=== PATIENT | male | born 1980 | race Hispanic/Latino ===

== ENCOUNTER 2017-06-15 17:26 | Emergency (ER) | payer SELFPAY ==
[2017-06-15 18:35] LABS: RAPID GROUP A STREP NEGATIVE (NEGATIVE)
== END 2017-06-15 18:49 | disposition home or self-care (01) ==
LOC: EDH 17:26
DX: J06.9 Acute upper respiratory infection, unspecified (principal); Z87.891 Personal history of nicotine dependence
CPT/HCPCS: 71046; 87804; 87880

== ENCOUNTER 2018-02-15 18:39 | Emergency (ER) | payer OTHER ==
[2018-02-15] MEDS ORDERED: IPRATROPIUM/ALBUTEROL SULFATE 3 ML SOLUTION IH ONE (19:12)
== END 2018-02-15 20:05 | disposition home or self-care (01) ==
LOC: EDH 18:39
DX: J06.9 Acute upper respiratory infection, unspecified (principal); Z90.49 Acquired absence of other specified parts of digestive tract; Z87.891 Personal history of nicotine dependence
CPT/HCPCS: 87804; 94640

== ENCOUNTER 2018-04-01 10:18 | Emergency (ER) | payer SELFPAY ==
[2018-04-01 11:20] LABS: RAPID GROUP A STREP NEGATIVE (NEGATIVE)
== END 2018-04-01 11:31 | disposition home or self-care (01) ==
LOC: EDH 10:18
DX: J06.9 Acute upper respiratory infection, unspecified (principal); J30.9 Allergic rhinitis, unspecified; J01.90 Acute sinusitis, unspecified; Z87.891 Personal history of nicotine dependence
CPT/HCPCS: 87804; 87880

== ENCOUNTER 2019-03-25 12:50 | Emergency (ER) | payer BC, OTHER ==
[~2019-03-25 12:50] MED LIST: MULT-1296 PO
== END 2019-03-25 14:03 | disposition home or self-care (01) ==
LOC: EDH 12:50
DX: R05 Cough (principal); Z88.1 Allergy status to other antibiotic agents; Z90.49 Acquired absence of other specified parts of digestive tract; Z87.891 Personal history of nicotine dependence

== ENCOUNTER 2019-07-13 13:05 | Emergency (ER) | payer OTHER ==
[2019-07-13 14:00] LABS: BASOPHILS % (AUTO) 0.5 % (0.0-5.0); EOSINOPHILS % (AUTO) 2.5 % (0.0-8.0); HEMATOCRIT 46.1 % (42-54); LYMPHOCYTES % (AUTO) 22.6 % (21.0-51.0); MEAN CORPUSCULAR HGB CONC 33.2 g/dL (32.0-36.0); MEAN CORPUSCULAR VOLUME 90.4 fL (79-99); MONOCYTES % (AUTO) 6.4 % (3.0-13.0); NEUTROPHILS % (AUTO) 67.7 % (40.0-77.0); PLATELET COUNT (AUTO) 249 K/uL (130-400); RED CELL DISTRIBUTION WIDTH 12.2 % (11.0-15.5); WHITE BLOOD COUNT (AUTO) 9.6 K/uL (4.8-10.8)
[2019-07-13 14:19] LABS: CREATININE 1.3 mg/dL (0.5-1.5); POTASSIUM 3.9 mmol/L (3.5-5.1)
[2019-07-13] MEDS ORDERED: IOHEXOL-350 50ML VIAL IV ONE (14:43)
== END 2019-07-13 16:29 | disposition home or self-care (01) ==
LOC: EDH 13:05
DX: R68.84 Jaw pain (principal); R22.0 Localized swelling, mass and lump, head; Z90.49 Acquired absence of other specified parts of digestive tract; Z87.891 Personal history of nicotine dependence; Z88.6 Allergy status to analgesic agent; Z88.1 Allergy status to other antibiotic agents
CPT/HCPCS: 36415; 70491; 80048; 85025; 99285; Q9967

== ENCOUNTER 2020-04-20 16:05 | Emergency (ER) | payer SELFPAY | END 2020-04-20 20:03 | disposition home or self-care (01) | LOC: EDH 16:05 | DX: J12.89 Other viral pneumonia (principal); E11.9 Type 2 diabetes mellitus without complications; E78.00 Pure hypercholesterolemia, unspecified; Z90.49 Acquired absence of other specified parts of digestive tract; Z88.1 Allergy status to other antibiotic agents | CPT/HCPCS: 71045 ==

== ENCOUNTER 2023-02-12 00:36 | Emergency (ER) | payer OTHER ==
[~2023-02-12] VITALS: Ht 167.6 cm; Wt 81.6 kg
[2023-02-12 01:11] LABS: BASOPHILS # (AUTO) 0.01 K/uL (0.00-0.20); BASOPHILS % (AUTO) 0.1 % (0.0-5.0); EOSINOPHILS # (AUTO) 0.06 K/uL (0.00-0.70); EOSINOPHILS % (AUTO) 0.7 % (0.0-8.0); HEMATOCRIT 43.8 % (42-54); IMMATURE GRANULOCYTE ABSOLUTE 0.03 K/uL (0-1); LYMPHOCYTES # (AUTO) 0.4 K/uL (1.0-4.8); LYMPHOCYTES % (AUTO) 4.9 % (21.0-51.0); MEAN CORPUSCULAR HEMOGLOBIN 30.8 pg (27.0-33.0); MEAN CORPUSCULAR VOLUME 90.7 fL (79-99); MONOCYTES # (AUTO) 0.5 K/uL (0.1-1.0); MONOCYTES % (AUTO) 5.8 % (3.0-13.0); NEUTROPHILS # (AUTO) 7.4 K/uL (1.8-7.7); NEUTROPHILS % (AUTO) 88.1 % (40.0-77.0); PLATELET COUNT (AUTO) 198 K/uL (130-400); RED BLOOD CELL COUNT(AUTO) 4.83 MIL/uL (4.50-6.20); WHITE BLOOD COUNT (AUTO) 8.4 K/uL (4.8-10.8)
[2023-02-12 01:11] LABS: APPEARANCE,URINE CLEAR (CLEAR); BILIRUBIN,URINE NEGATIVE (NEGATIVE); COLOR,URINE YELLOW (YELLOW); GLUCOSE, URINE (UA) NEGATIVE (NEGATIVE); KETONES,URINE NEGATIVE (NEGATIVE); LEUKOCYTE ESTERASE ,URINE NEGATIVE Leu/uL (NEGATIVE); NITRATE,URINE NEGATIVE (NEGATIVE); OCCULT BLOOD,URINE NEGATIVE (NEGATIVE); PH,URINE 5.5 (5.0-8.0); PROTEIN,URINE 10 mg/dL (NEGATIVE); UROBILINOGEN,URINE 0.2 mg/dL (0.2-1.0)
[2023-02-12 01:13] LABS: ADD UA MICROSCOPIC YES
[2023-02-12 01:15] LABS: MUCUS,URINE RARE LPF (None Seen); RBC,URINE 0-1 /HPF (0-1); SQUAMOUS EPITHELIAL CELL,UR RARE /HPF (0-2); WBC,URINE 0-1 /HPF (0-1)
[2023-02-12 01:20] LABS: CREATININE 1.3 mg/dL (0.5-1.5); POTASSIUM 3.4 mmol/L (3.5-5.1)
[2023-02-12 01:24] LABS: ALBUMIN 3.7 g/dL (3.5-5.0); BILIRUBIN,TOTAL 0.8 mg/dL (0.2-1.0); INR 0.99 (0.85-1.15); PROTHROMBIN TIME 11.5 SEC (9.6-11.6); TOTAL PROTEIN, SERUM 7.2 g/dL (6.0-8.3)
[2023-02-12 01:26] LABS: PARTIAL THROMBOPLASTIN TIME 28.9 SEC (26.3-35.5)
[2023-02-12] MEDS ORDERED: HYDROMORPHONE 0.5 MG SYG (0.5MG/0.5ML) IVP ONE (01:30)
[2023-02-12 01:56] LABS: RAPID GROUP A STREP negative (NEGATIVE)
[2023-02-12 02:01] LABS: SARS-CoV-2, RNA, NAAT NEGATIVE SARS CoV-2 (NEGATIVE)
[2023-02-12 02:05] LABS: INFLUENZA TYPE A Negative For Type A (NEGATIVE); INFLUENZA TYPE B Negative For Type B (NEGATIVE)
[2023-02-12] MEDS ORDERED: MAG/ALUM/SIMETH 30 ML UDCUP PO ONE (02:30)
[2023-02-12] MEDS ORDERED: DICYCLOMINE HCL 10 MG/5 ML ML PO SCH (02:30)
[2023-02-12] MEDS ORDERED: LIDOCAINE HCL 2% VISCOUS 15 ML UDCUP PO ONE (02:30)
[2023-02-12 02:33] LABS: WBC MORPHOLOGY CONSISTENT W/DIFF
[2023-02-12] MEDS ORDERED: IOHEXOL 350 MG/ML 100ML INFUS..BTL IV ONE (03:03)
[2023-02-12] MEDS ORDERED: OMEP40CA21 PO (04:00)
[2023-02-12] MEDS ORDERED: MAG-55 PO (04:00)
[2023-02-12] MEDS ORDERED: IBUP-1493 PO (04:00)
[2023-02-12] MEDS ORDERED: ONDA-104 PO (04:00)
[2023-02-12 04:21] VITALS: BP 129/73; PULSE 86; RESP 18; O2SAT 98
== END 2023-02-12 04:23 | disposition home or self-care (01) ==
LOC: EDH 00:36
DX: R10.13 Epigastric pain (principal); Z20.822 Contact with and (suspected) exposure to COVID-19; Z79.899 Other long term (current) drug therapy; Z90.49 Acquired absence of other specified parts of digestive tract; Z98.890 Other specified postprocedural states
CPT/HCPCS: 99285; 74177; 96374; 87635; 80053; 83690; 85025; 85610; 85730; 87880; 87804 ×2; 81001; 36415; C9803; J1170; Q9967

== ENCOUNTER 2023-07-26 12:51 | Emergency (ER) | payer BC, OTHER ==
[~2023-07-26] VITALS: Ht 167.6 cm; Wt 113.4 kg
[~2023-07-26 12:51] MED LIST changes: +IBUP-1493 PO; +MAG-55 PO; +OMEP40CA21 PO; +ONDA-104 PO
[2023-07-26 13:32] LABS: BASOPHILS # (AUTO) 0.04 K/uL (0.00-0.20); BASOPHILS % (AUTO) 0.4 % (0.0-5.0); EOSINOPHILS # (AUTO) 0.15 K/uL (0.00-0.70); EOSINOPHILS % (AUTO) 1.6 % (0.0-8.0); HEMATOCRIT 43.2 % (42-54); IMMATURE GRANULOCYTE ABSOLUTE 0.05 K/uL (0-1); LYMPHOCYTES # (AUTO) 2.4 K/uL (1.0-4.8); LYMPHOCYTES % (AUTO) 25.7 % (21.0-51.0); MEAN CORPUSCULAR HEMOGLOBIN 31.2 pg (27.0-33.0); MEAN CORPUSCULAR HGB CONC 32.6 g/dL (32.0-36.0); MEAN CORPUSCULAR VOLUME 95.6 fL (79-99); MONOCYTES # (AUTO) 0.7 K/uL (0.1-1.0); MONOCYTES % (AUTO) 7.1 % (3.0-13.0); NEUTROPHILS % (AUTO) 64.7 % (40.0-77.0); PLATELET COUNT (AUTO) 249 K/uL (130-400); RED BLOOD CELL COUNT(AUTO) 4.52 MIL/uL (4.50-6.20); RED CELL DISTRIBUTION WIDTH 12.8 % (11.0-15.5); WHITE BLOOD COUNT (AUTO) 9.3 K/uL (4.8-10.8)
[2023-07-26 13:39] LABS: APPEARANCE,URINE CLEAR (CLEAR); BILIRUBIN,URINE NEGATIVE (NEGATIVE); COLOR,URINE YELLOW (YELLOW); GLUCOSE, URINE (UA) NEGATIVE (NEGATIVE); KETONES,URINE NEGATIVE (NEGATIVE); LEUKOCYTE ESTERASE ,URINE NEGATIVE Leu/uL (NEGATIVE); NITRATE,URINE NEGATIVE (NEGATIVE); OCCULT BLOOD,URINE NEGATIVE (NEGATIVE); PH,URINE 5.5 (5.0-8.0); PROTEIN,URINE NEGATIVE (NEGATIVE); UROBILINOGEN,URINE 0.2 mg/dL (0.2-1.0)
[2023-07-26 13:45] LABS: ADD UA MICROSCOPIC YES
[2023-07-26 13:46] LABS: CALCIUM OXALATE CRYSTALS,UR FEW /LPF (None Seen); MUCUS,URINE RARE LPF (None Seen)
[2023-07-26 13:48] LABS: CREATININE 1.4 mg/dL (0.5-1.3); POTASSIUM 3.6 mmol/L (3.5-5.1)
[2023-07-26] MEDS: KETOROLAC 15MG/ML VIAL (15MG/ML) IM ONE (13:50)
[2023-07-26 13:51] LABS: ALBUMIN 3.6 g/dL (3.5-5.0); BILIRUBIN,TOTAL 0.5 mg/dL (0.2-1.0); TOTAL PROTEIN, SERUM 7.2 g/dL (6.0-8.3)
[2023-07-26] MEDS: ONDANSETRON 4MG INJ IVP ONE (13:55)
[2023-07-26] MEDS: MORPHINE 4 MG SYG IVP ONE (13:56)
[2023-07-26] MEDS ORDERED: IOHEXOL 350 MG/ML 100ML INFUS..BTL IV ONE ×2 (14:31→14:48)
[2023-07-26 16:06] VITALS: BP 143/86; PULSE 73; RESP 16; O2SAT 97
[2023-07-26] MEDS ORDERED: AMOX-427 PO (17:36)
== END 2023-07-26 18:39 | disposition home or self-care (01) ==
LOC: EDH 12:51
DX: K52.9 Noninfective gastroenteritis and colitis, unspecified (principal); Z79.899 Other long term (current) drug therapy; Z90.49 Acquired absence of other specified parts of digestive tract; Z98.890 Other specified postprocedural states; Z88.8 Allergy status to other drugs, medicaments and biological substances
CPT/HCPCS: 99284; 74177; 96374; 96375; 80053; 85025; 81001; 36415; J2405; J2270; Q9967 ×2; J1885

== ENCOUNTER 2023-08-10 21:36 | Emergency (ER) | payer BC ==
[~2023-08-10] VITALS: Ht 167.6 cm; Wt 119.7 kg
[~2023-08-10 21:36] MED LIST changes: +AMOX-427 PO
[2023-08-10 23:35] VITALS: BP 132/74; PULSE 80; RESP 18; O2SAT 98
== END 2023-08-10 23:54 | disposition home or self-care (01) ==
LOC: EDH 21:36
DX: R10.84 Generalized abdominal pain (principal); Z90.49 Acquired absence of other specified parts of digestive tract
CPT/HCPCS: 74176

== ENCOUNTER 2023-11-17 18:37 | Observation (INO) | payer BC ==
[~2023-11-17] VITALS: Ht 167.6 cm; Wt 124.6 kg
[2023-11-17 19:02] LABS: BASOPHILS # (AUTO) 0.04 K/uL (0.00-0.20); BASOPHILS % (AUTO) 0.4 % (0.0-5.0); EOSINOPHILS # (AUTO) 0.22 K/uL (0.00-0.70); EOSINOPHILS % (AUTO) 2.3 % (0.0-8.0); HEMATOCRIT 45.4 % (42-54); IMMATURE GRANULOCYTE ABSOLUTE 0.03 K/uL (0-1); LYMPHOCYTES # (AUTO) 1.6 K/uL (1.0-4.8); LYMPHOCYTES % (AUTO) 17.4 % (21.0-51.0); MEAN CORPUSCULAR HEMOGLOBIN 30.6 pg (27.0-33.0); MEAN CORPUSCULAR HGB CONC 33.7 g/dL (32.0-36.0); MEAN CORPUSCULAR VOLUME 90.8 fL (79-99); MONOCYTES # (AUTO) 0.5 K/uL (0.1-1.0); MONOCYTES % (AUTO) 4.8 % (3.0-13.0); NEUTROPHILS % (AUTO) 74.8 % (40.0-77.0); PLATELET COUNT (AUTO) 234 K/uL (130-400); RED CELL DISTRIBUTION WIDTH 13.1 % (11.0-15.5); WHITE BLOOD COUNT (AUTO) 9.4 K/uL (4.8-10.8)
[2023-11-17 19:14] LABS: CREATININE 1.5 mg/dL (0.5-1.3); POTASSIUM 3.4 mmol/L (3.5-5.1)
[2023-11-17 19:19] LABS: ALBUMIN 3.8 g/dL (3.5-5.0); BILIRUBIN,TOTAL 0.5 mg/dL (0.2-1.0); TOTAL PROTEIN, SERUM 7.5 g/dL (6.0-8.3)
[2023-11-17 19:28] LABS: RAPID GROUP A STREP negative (NEGATIVE)
[2023-11-17 19:34] LABS: SARS-CoV-2, RNA, NAAT NEGATIVE SARS CoV-2 (NEGATIVE)
[2023-11-17 19:41] LABS: INFLUENZA TYPE A Negative For Type A (NEGATIVE); INFLUENZA TYPE B Negative For Type B (NEGATIVE)
[2023-11-17 20:00] LABS: APPEARANCE,URINE CLEAR (CLEAR); BILIRUBIN,URINE NEGATIVE (NEGATIVE); COLOR,URINE LIGHT-YELLOW (YELLOW); GLUCOSE, URINE (UA) NEGATIVE (NEGATIVE); KETONES,URINE NEGATIVE (NEGATIVE); LEUKOCYTE ESTERASE ,URINE NEGATIVE Leu/uL (NEGATIVE); NITRATE,URINE NEGATIVE (NEGATIVE); OCCULT BLOOD,URINE NEGATIVE (NEGATIVE); PH,URINE 5.5 (5.0-8.0); PROTEIN,URINE NEGATIVE (NEGATIVE); UROBILINOGEN,URINE 0.2 mg/dL (0.2-1.0)
[2023-11-17 20:13] LABS: ADD UA MICROSCOPIC NO
[2023-11-17] MEDS ORDERED: doCUSate SODIUM 100 MG CAP PO PRN (22:30)
[2023-11-17] MEDS ORDERED: ONDANSETRON 4MG INJ IVP PRN (22:30)
[2023-11-17] MEDS ORDERED: TEMAZEPAM 15 MG CAPSULE PO PRN (22:30)
[2023-11-17] MEDS ORDERED: acetaMINOPHEN 650 MG SUPPOSITORY RC PRN (22:30)
[2023-11-17] MEDS ORDERED: LACTULOSE 20 GM/30 ML UDCUP PO PRN (22:30)
[2023-11-17] MEDS ORDERED: hydrALAZine 20MG/ML VIAL IV PRN (22:30)
[2023-11-17] MEDS: LACTATED RINGERS 1000ML 1,000 ML IV SCH (22:34)
[2023-11-17] MEDS: LACTATED RINGERS 1000ML 1,000 ML IV ONE (22:34)
[2023-11-17] MEDS: ASPIRIN 81MG CHEW TAB PO ONE (22:35)
[2023-11-17] MEDS: atorVAStatin 40 MG TABLET PO SCH (22:46)
[2023-11-17 23:08] VITALS: BP 130/84; PULSE 81; RESP 17; TEMP 98.3
[2023-11-17 23:25] LABS: AMPHET/METH SCREEN,URINE NEGATIVE (NEGATIVE); BARBITURATE SCREEN, URINE NEGATIVE (NEGATIVE); BENZODIAZEPINES SCREEN,URINE NEGATIVE (NEGATIVE); CANNABINOID SCREEN,URINE NEGATIVE (NEGATIVE); COCAINE SCREEN,URINE NEGATIVE (NEGATIVE); OPIATE SCREEN,URINE NEGATIVE (NEGATIVE); PHENCYCLIDINE SCREEN,URINE NEGATIVE (NEGATIVE)
[2023-11-18] VITALS (8 sets, daily range): BP systolic 119–157; BP diastolic 68–88; PULSE 66–75; RESP 18–19; TEMP 97.6–98.5; O2SAT 97–98
[2023-11-18 05:16] LABS: BASOPHILS # (AUTO) 0.04 K/uL (0.00-0.20); BASOPHILS % (AUTO) 0.5 % (0.0-5.0); EOSINOPHILS # (AUTO) 0.31 K/uL (0.00-0.70); EOSINOPHILS % (AUTO) 3.8 % (0.0-8.0); HEMATOCRIT 42.3 % (42-54); IMMATURE GRANULOCYTE ABSOLUTE 0.06 K/uL (0-1); LYMPHOCYTES # (AUTO) 2.2 K/uL (1.0-4.8); LYMPHOCYTES % (AUTO) 26.7 % (21.0-51.0); MEAN CORPUSCULAR HEMOGLOBIN 30.7 pg (27.0-33.0); MEAN CORPUSCULAR HGB CONC 33.3 g/dL (32.0-36.0); MEAN CORPUSCULAR VOLUME 92.2 fL (79-99); MONOCYTES # (AUTO) 0.5 K/uL (0.1-1.0); MONOCYTES % (AUTO) 6.2 % (3.0-13.0); NEUTROPHILS # (AUTO) 5.1 K/uL (1.8-7.7); NEUTROPHILS % (AUTO) 62.1 % (40.0-77.0); PLATELET COUNT (AUTO) 214 K/uL (130-400); RED BLOOD CELL COUNT(AUTO) 4.59 MIL/uL (4.50-6.20); RED CELL DISTRIBUTION WIDTH 13.2 % (11.0-15.5); WHITE BLOOD COUNT (AUTO) 8.2 K/uL (4.8-10.8)
[2023-11-18 05:35] LABS: CREATININE 1.3 mg/dL (0.5-1.3); POTASSIUM 3.7 mmol/L (3.5-5.1); THYROID STIMULATING HORMONE 3.24 uIU/mL (0.36-3.74)
[2023-11-18] MEDS: INSULIN humuLIN R 100 UNIT/ML 3ML SQ SCH (06:21)
[2023-11-18 06:30] LABS: HEMOGLOBIN A1C 5.7 % (4.0-6.0)
[2023-11-18] MEDS: acetaMINOPHEN 325 MG TAB PO PRN (06:40)
[2023-11-18] MEDS: FAMOTIDINE 20MG TAB PO SCH (09:07)
[2023-11-18] MEDS: ASPIRIN 81MG CHEW TAB PO SCH (09:07)
[2023-11-18] MEDS: ENOXAPARIN SODIUM 40 MG/0.4 ML SYRINGE SQ SCH (09:08)
[2023-11-19 04:00] VITALS: BP 118/75; PULSE 70; RESP 20; TEMP 98.7
[2023-11-19 05:20] LABS: BASOPHILS # (AUTO) 0.05 K/uL (0.00-0.20); BASOPHILS % (AUTO) 0.7 % (0.0-5.0); EOSINOPHILS # (AUTO) 0.29 K/uL (0.00-0.70); EOSINOPHILS % (AUTO) 3.8 % (0.0-8.0); HEMATOCRIT 40.4 % (42-54); IMMATURE GRANULOCYTE ABSOLUTE 0.04 K/uL (0-1); LYMPHOCYTES % (AUTO) 26.5 % (21.0-51.0); MEAN CORPUSCULAR HEMOGLOBIN 30.3 pg (27.0-33.0); MEAN CORPUSCULAR HGB CONC 33.4 g/dL (32.0-36.0); MEAN CORPUSCULAR VOLUME 90.6 fL (79-99); MONOCYTES # (AUTO) 0.5 K/uL (0.1-1.0); MONOCYTES % (AUTO) 6.3 % (3.0-13.0); NEUTROPHILS # (AUTO) 4.8 K/uL (1.8-7.7); NEUTROPHILS % (AUTO) 62.2 % (40.0-77.0); PLATELET COUNT (AUTO) 194 K/uL (130-400); RED BLOOD CELL COUNT(AUTO) 4.46 MIL/uL (4.50-6.20); RED CELL DISTRIBUTION WIDTH 12.6 % (11.0-15.5); WHITE BLOOD COUNT (AUTO) 7.7 K/uL (4.8-10.8)
[2023-11-19 05:41] LABS: BILIRUBIN,TOTAL 0.6 mg/dL (0.2-1.0); CREATININE 1.4 mg/dL (0.5-1.3); MAGNESIUM 1.8 mg/dL (1.80-2.40); POTASSIUM 3.5 mmol/L (3.5-5.1); TOTAL PROTEIN, SERUM 6.1 g/dL (6.0-8.3)
[2023-11-19 08:00] VITALS: BP 119/85; PULSE 66; RESP 18; TEMP 97.5; O2SAT 97
[2023-11-19] MEDS: KCL 20 MEQ ERTAB PO ONE (10:40)
[2023-11-19 11:08] LABS: BASOPHILS # (AUTO) 0.05 K/uL (0.00-0.20); BASOPHILS % (AUTO) 0.6 % (0.0-5.0); EOSINOPHILS # (AUTO) 0.22 K/uL (0.00-0.70); EOSINOPHILS % (AUTO) 2.7 % (0.0-8.0); HEMATOCRIT 42.6 % (42-54); IMMATURE GRANULOCYTE ABSOLUTE 0.04 K/uL (0-1); LYMPHOCYTES # (AUTO) 1.7 K/uL (1.0-4.8); MEAN CORPUSCULAR HEMOGLOBIN 30.5 pg (27.0-33.0); MEAN CORPUSCULAR HGB CONC 33.1 g/dL (32.0-36.0); MONOCYTES # (AUTO) 0.5 K/uL (0.1-1.0); NEUTROPHILS # (AUTO) 5.6 K/uL (1.8-7.7); NEUTROPHILS % (AUTO) 69.2 % (40.0-77.0); PLATELET COUNT (AUTO) 210 K/uL (130-400); RED BLOOD CELL COUNT(AUTO) 4.63 MIL/uL (4.50-6.20); RED CELL DISTRIBUTION WIDTH 12.7 % (11.0-15.5); WHITE BLOOD COUNT (AUTO) 8.1 K/uL (4.8-10.8)
[2023-11-19 12:00] VITALS: BP 132/83; PULSE 82; RESP 19; TEMP 98.3
[2023-11-19 12:39] LABS: CREATININE 1.3 mg/dL (0.5-1.3); POTASSIUM 3.8 mmol/L (3.5-5.1)
[2023-11-19 12:45] LABS: ALBUMIN 3.3 g/dL (3.5-5.0); BILIRUBIN,TOTAL 0.6 mg/dL (0.2-1.0); TOTAL PROTEIN, SERUM 6.7 g/dL (6.0-8.3)
[2023-11-19] MEDS ORDERED: ASPI-1005 PO ×2 (13:28)
[2023-11-19] MEDS ORDERED: ATOR40TA69 PO ×2 (13:28)
[2023-11-19] MEDS ORDERED: FAMO20TA8 PO ×2 (13:28)
== END 2023-11-19 14:00 | disposition home or self-care (01) ==
LOC: EDH 18:37 → EDHIP 20:41 → 3CH 23:08
PROVIDERS: ADMIT Hospitalist; ATTEND Hospitalist
DX: R07.9 Chest pain, unspecified (principal); Z20.822 Contact with and (suspected) exposure to COVID-19; E87.6 Hypokalemia; I12.9 Hypertensive chronic kidney disease with stage 1 through stage 4 chronic kidney disease, or unspecified chronic kidney disease; E11.22 Type 2 diabetes mellitus with diabetic chronic kidney disease; N18.31 Chronic kidney disease, stage 3a; N17.9 Acute kidney failure, unspecified; E11.65 Type 2 diabetes mellitus with hyperglycemia; E78.5 Hyperlipidemia, unspecified; E86.0 Dehydration; R22.1 Localized swelling, mass and lump, neck; E66.01 Morbid (severe) obesity due to excess calories; Z68.38 Body mass index [BMI] 38.0-38.9, adult; Z88.5 Allergy status to narcotic agent; Z90.49 Acquired absence of other specified parts of digestive tract; Z79.899 Other long term (current) drug therapy
CPT/HCPCS: 99285; 82550; 84484 ×2; 80053 ×3; 83880; 80305; 85025 ×4; 85378; 87880; 87804 ×2; 81003; 36415 ×3; 87635; 71045; 93005; 96372 ×2; 96360; 96361; 83036; 84443; 82465; 83735 ×2; 84100; 84478; 80048; 82948 ×7; 70360; 70490; 93306; 93356; 93880; G0378 ×39; J7120; J1650 ×2

== ENCOUNTER 2023-11-20 23:04 | Emergency (ER) | payer BC ==
[~2023-11-20] VITALS: Ht 167.6 cm; Wt 122.5 kg
[~2023-11-20 23:04] MED LIST changes: +ASPI-1005 PO; +ATOR40TA69 PO; +FAMO20TA8 PO
[2023-11-21 00:52] LABS: APPEARANCE,URINE CLEAR (CLEAR); BILIRUBIN,URINE NEGATIVE (NEGATIVE); COLOR,URINE LIGHT-YELLOW (YELLOW); GLUCOSE, URINE (UA) NEGATIVE (NEGATIVE); KETONES,URINE NEGATIVE (NEGATIVE); LEUKOCYTE ESTERASE ,URINE NEGATIVE Leu/uL (NEGATIVE); NITRATE,URINE NEGATIVE (NEGATIVE); OCCULT BLOOD,URINE NEGATIVE (NEGATIVE); PH,URINE 5.5 (5.0-8.0); PROTEIN,URINE NEGATIVE (NEGATIVE); UROBILINOGEN,URINE 0.2 mg/dL (0.2-1.0)
[2023-11-21 01:04] LABS: ADD UA MICROSCOPIC NO
[2023-11-21] MEDS: ketOROlac 30MG VIAL (30MG/ML) IM ONE (02:14)
[2023-11-21] MEDS ORDERED: BACL10TA PO (02:15)
[2023-11-21] MEDS ORDERED: KETO10TA2 PO (02:15)
[2023-11-21 02:17] VITALS: BP 142/85; PULSE 82; RESP 16; TEMP 97.8; O2SAT 98
== END 2023-11-21 02:30 | disposition home or self-care (01) ==
LOC: EDH 23:04
DX: M62.830 Muscle spasm of back (principal); E11.9 Type 2 diabetes mellitus without complications; Z79.1 Long term (current) use of non-steroidal anti-inflammatories (NSAID); Z79.82 Long term (current) use of aspirin; Z79.899 Other long term (current) drug therapy; Z88.1 Allergy status to other antibiotic agents; Z90.49 Acquired absence of other specified parts of digestive tract; W01.0XXA Fall on same level from slipping, tripping and stumbling without subsequent striking against object, initial encounter; Y93.89 Activity, other specified; Y92.89 Other specified places as the place of occurrence of the external cause; Y99.8 Other external cause status
CPT/HCPCS: 99284; 81003; 72110; 96372; J1885

== ENCOUNTER 2024-06-27 21:11 | Emergency (ER) | payer BC ==
[~2024-06-27] VITALS: Ht 167.6 cm; Wt 129.3 kg
[~2024-06-27 21:11] MED LIST changes: -AMOX-427 PO; +BACL10TA PO; +KETO10TA2 PO
[2024-06-27 22:13] LABS: BASOPHILS # (AUTO) 0.05 K/uL (0.00-0.20); BASOPHILS % (AUTO) 0.5 % (0.0-5.0); EOSINOPHILS # (AUTO) 0.33 K/uL (0.00-0.70); EOSINOPHILS % (AUTO) 3.6 % (0.0-8.0); HEMATOCRIT 41.7 % (42-54); IMMATURE GRANULOCYTE ABSOLUTE 0.05 K/uL (0-1); LYMPHOCYTES # (AUTO) 2.1 K/uL (1.0-4.8); LYMPHOCYTES % (AUTO) 23.3 % (21.0-51.0); MEAN CORPUSCULAR HEMOGLOBIN 30.7 pg (27.0-33.0); MEAN CORPUSCULAR HGB CONC 34.1 g/dL (32.0-36.0); MEAN CORPUSCULAR VOLUME 90.3 fL (79-99); MONOCYTES # (AUTO) 0.6 K/uL (0.1-1.0); MONOCYTES % (AUTO) 6.9 % (3.0-13.0); NEUTROPHILS % (AUTO) 65.2 % (40.0-77.0); PLATELET COUNT (AUTO) 235 K/uL (130-400); RED BLOOD CELL COUNT(AUTO) 4.62 MIL/uL (4.50-6.20); RED CELL DISTRIBUTION WIDTH 12.9 % (11.0-15.5); WHITE BLOOD COUNT (AUTO) 9.2 K/uL (4.8-10.8)
[2024-06-27] MEDS: ASPIRIN 325MG TAB PO ONE (22:17)
[2024-06-27] MEDS: PANTOPrazole 40 MG/VIAL IVP ONE (22:17)
[2024-06-27 22:26] LABS: CREATININE 1.2 mg/dL (0.5-1.3); POTASSIUM 3.6 mmol/L (3.5-5.1)
[2024-06-27 22:53] LABS: B-TYPE NATRIURETIC PEPTIDE 6 pg/mL (0-100)
--- NOTE | 2024-06-27 23:21 | ERN ---
ED Note History of Present Illness Stated Complaint: NECK PAIN, ARM NUMBNESS Chief Complaint: Neck Pain Time Seen by MD: 21:29 Time Seen by Midlevel: 21:29 Dictation: Patient is a 44-year-old male with a history of appendectomy, cholecystectomy who presents to the emergency department with complaints of left side neck pain that radiates to the chest and left arm onset two days ago. Patient denies any trauma. Patient reports a sensation of swelling to the neck. Denies any fevers. Patient does report a the pain is worse with movement. Patient had similar episodes in November of last year. Allergies: Coded Allergies: ceftriaxone (Unverified Allergy, Severe, ANAPHYLAXIS, 09/17/18) No Known Allergies (Verified Allergy, Unknown, 09/17/18) metronidazole (Unverified Allergy, Unknown, 09/17/18) Home Meds Active Scripts Baclofen (Baclofen) 10 Mg Tablet, 10 MG PO BID for 7 Days, #1 TAB Prov:KEO SHAW MD 11/21/23 Ketorolac Tromethamine (Ketorolac Tromethamine) 10 Mg Tablet, 10 MG PO BID for 7 Days, #14 TAB Prov:KEO SHAW MD 11/21/23 Famotidine (Famotidine) 20 Mg Tablet, 20 MG PO BID, #60 TAB Prov:ANNE DELVALLE PRINCIPAL BIOSTATISTICIAN 11/19/23 Atorvastatin Calcium (LIPITOR) 40 Mg Tablet, 40 MG PO HS, #60 TAB Prov:ANNE DELVALLE PRINCIPAL BIOSTATISTICIAN 11/19/23 Aspirin (ASPIRIN 81MG CHEW TAB) 81 Mg Tab.chew, 81 MG PO DAILY, #60 TAB.CHEW Prov:ANNE DELVALLE PRINCIPAL BIOSTATISTICIAN 11/19/23 Mag Hydrox/Al Hydrox/Simeth (Maalox Maximum Strength Susp) 400 Mg-400 Mg-40 Mg/5 Ml Oral.susp, 20 ML PO QID, #250 ML Prov:BONNIE DUCKWORTH MD 02/12/23 Ondansetron HCl (Ondansetron HCl) 4 Mg Tablet, 4 MG PO TIDP PRN for VOMITING, #20 TAB Prov:BONNIE DUCKWORTH MD 02/12/23 Omeprazole (Omeprazole) 40 Mg Capsule.dr, 40 MG PO DAILY, #30 CAP Prov:BONNIE DUCKWORTH MD 02/12/23 Ibuprofen (Motrin/Advil) 800 Mg Tab, 800 MG PO TID, #30 TAB Prov:BONNIE DUCKWORTH MD 02/12/23 Reported Medications Multivitamin/Iron/Folic Acid (Centrum Adults Tablet) 1 Each Tablet, 1 EACH PO DAILY, TAB 09/17/18 Past Medical History Past Medical History: No Pertinent History Additional Past Medical Hx: DIERTICULITIS history of pancreatitis Surgical History: Appendectomy, Cholecystectomy Surgical History Other: Cholecystectomy Family History: HTN Social History: ETOH, Negative RN Note Reviewed/Agreed w/PFSH: Yes Review of System Dictation Constitutional: Negative for fever,chills, and weight loss Eyes: Negative for injury, pain,redness, and discharge ENT: Negative for injury,pain or swelling positive for left-sided neck pain Cardiovascular: Negative for palpitations, and edema positive for chest pain Respiratory: Negative for shortness of breath, cough, and wheezing, Abdomen/GI: Negative for abdominal pain, nausea, vomiting, diarrhea, and constipation Back: Negative for injury and pain : Negative for injury, bleeding and discharge MS/Extremity: Negative for injury and deformity Skin: Negative for rash, and discoloration Neuro: Negative for headache, weakness, numbness, tingling, and seizure Psych: Negative for suicide ideation, homicidal ideation, and hallucinations Initial Vital Sign VS Vital Signs Date Time Temp Pulse Resp B/P (MAP) Pulse Ox O2 Delivery O2 Flow Rate FiO2 06/27/24 21:22 97.5 71 24 151/91 97 Room Air 06/27/24 21:41 0 21 Physical Exam Dictation Vital Signs reviewed General Appearance: Alert, oriented x 3, no acute distress, well developed, nourished. Head and Face: non-traumatic. Eyes: PERRL, pink conjunctivas, eyelid no trauma, anterior chamber with arcus senilis. Ears: Pinnas intact and no signs of trauma or erythema ear canals clear and no discharge TM no erythema Nose: No discharge, no bleeding. Oropharynx: Mouth normal, tongue pink. pharynx clear,no erythema, tonsils no exudates, no abscesses noted, mucous membrane moist Neck: Supple, non-tender, no thyromegaly, no masses, no JVD, no bruits Breast:Deferred Chest:No tenderness, no crepitus, no paradoxical movement, no retractions Lungs:Clear, well-ventilated, symmetric, no rales, no wheezing, no rhonchi, no stridor, good breath sounds bilaterally Heart: Regular rate, regular rhythm, no murmur, no gallops Vascular: no peripheral edema, Abdomen: Soft, positive bowel sounds, nondistended, no guarding, nontender, no rebound, no masses no hepatomegaly, no splenomegaly, no Vargas's sign, no hernias. Rectal: Deferred Genital: Deferred Neurological: Normal speech, motor function intact, sensory function intact Musculoskeletal: Neck nontender, full range of motion, back nontender, full range of motion, Extremities: nontender, full range of motion Skin: Color pink, dry, no turgor, no rash, no lacerations, no abrasions, no contusions. Lymphatic: Deferred Results (Laboratory/Radiology) Laboratory/Radiology Laboratory Tests Test 06/27/24 22:06 06/27/24 23:07 06/27/24 23:24 White Blood Count 9.2 K/uL (4.8-10.8) Red Blood Count 4.62 MIL/uL (4.50-6.20) Hemoglobin 14.2 g/dL (14.0-18.0) Hematocrit 41.7 % (42-54) L Mean Corpuscular Volume 90.3 fL (79-99) Mean Corpuscular Hemoglobin 30.7 pg (27.0-33.0) Mean Corpuscular Hemoglobin Concent 34.1 g/dL (32.0-36.0) Red Cell Distribution Width 12.9 % (11.0-15.5) Platelet Count 235 K/uL (130-400) Mean Platelet Volume 9.9 fL (7.5-10.5) Immature Granulocyte % (Auto) 0.5 % (0-1) Neutrophils (%) (Auto) 65.2 % (40.0-77.0) Lymphocytes (%) (Auto) 23.3 % (21.0-51.0) Monocytes (%) (Auto) 6.9 % (3.0-13.0) Eosinophils (%) (Auto) 3.6 % (0.0-8.0) Basophils (%) (Auto) 0.5 % (0.0-5.0) Neutrophils # (Auto) 6.0 K/uL (1.8-7.7) Lymphocytes # (Auto) 2.1 K/uL (1.0-4.8) Monocytes # (Auto) 0.6 K/uL (0.1-1.0) Eosinophils # (Auto) 0.33 K/uL (0.00-0.70) Basophils # (Auto) 0.05 K/uL (0.00-0.20) Absolute Immature Granulocyte (auto 0.05 K/uL (0-1) Nucleated Red Blood Cells 0.0 % (0.0-0.19) Sodium Level 139 mmol/L (136-145) Potassium Level 3.6 mmol/L (3.5-5.1) Chloride Level 102 mmol/L (101-111) Carbon Dioxide Level 28 mmol/L (21-32) Blood Urea Nitrogen 21 mg/dL (7-18) H Creatinine 1.2 mg/dL (0.5-1.3) Glomerular Filtration Rate Calc 76 mL/min (>90) Random Glucose 128 mg/dL (70-105) H Total Calcium 9.1 mg/dL (8.5-10.1) Magnesium Level 2.00 mg/dL (1.80-2.40) Total Creatine Kinase 109 U/L (21-232) Troponin I High Sensitivity 41 ng/L (4-75) 42 ng/L (4-75) B-Type Natriuretic Peptide 6 pg/mL (0-100) Lipase 38 U/L (16-77) Influenza Type A Antigen Negative For Type A Influenza Type B Antigen Negative For Type B SARS-CoV-2 Antigen (Rapid) PRESUMPTIVE NEGATIVE Group A Streptococcus Rapid negative (NEGATIVE) Labs Reviewed?: Yes EKG: (+) rhythm (Sinus rhythm) EKG Comment: Date:06/27/2024 Time:2137 Ventricular rate:79 CO interval:157 QRS duration:82 QT/QTc:365 EKG interpretation: Sinus rhythm Reviewed by ED Attending no STEMI ED Course ED Course Orders Procedure Category Date Status Time Cbc With Differential LAB 06/27/24 Complete 21:45 B-Type Natriuretic LAB 06/27/24 Complete Peptide 21:45 Chest 1vw RAD 06/27/24 Taken 21:45 12 Lead Ekg Tracing- EKG 06/27/24 Logged Technical 21:45 Magnesium LAB 06/27/24 Complete 21:45 Creatine Kinase, Total LAB 06/27/24 Complete 21:45 Troponin I High LAB 06/27/24 Complete Sensitivity 21:45 Aspirin 325mg Tab PHA 06/27/24 Complete (Aspirin 325mg Tab) 22:00 Urinalysis Profile LAB 06/27/24 Logged 21:45 Basic Metabolic Panel LAB 06/27/24 Complete 21:45 Drug Screen Urine LAB 06/27/24 Logged 21:45 Rapid (Group A Strep) LAB 06/27/24 Complete 21:45 Influenza Type A & B, LAB 06/27/24 Complete Rapid 21:45 Covid19 (Sars Antigen LAB 06/27/24 Complete Rapid) 21:45 Pantoprazole 40mg Inj PHA 06/27/24 Complete (Protonix 40mg Inj 22:00 Lipase LAB 06/27/24 Complete 21:45 Us Soft Tissue Neck US 06/27/24 Taken 21:55 Troponin I High LAB 06/27/24 Complete Sensitivity 23:03 Current Medications Medications (Trade) Dose Ordered Sig/Edward Route PRN Reason Start Time Stop Time Status Last Admin Dose Admin Aspirin (Aspirin 325mg Tab) 325 mg ONCE ONCE PO 06/27/24 22:00 06/27/24 22:01 DC 06/27/24 22:17 Pantoprazole Sodium (PROTonix 40MG INJ) 40 mg ONCE ONCE IVP 06/27/24 22:00 06/27/24 22:01 DC 06/27/24 22:17 Vital Signs Date Time Temp Pulse Resp B/P (MAP) Pulse Ox O2 Delivery O2 Flow Rate FiO2 06/27/24 23:08 98.6 81 20 145/90 100 Room Air* 0 21 06/27/24 21:41 98.6 76 20 159/93 100 Room Air* 0 21 06/27/24 21:22 97.5 71 24 151/91 97 Room Air HEART Score Response (Comments) Value History: Low suspicion (0) 0 EKG: Normal 0 Age: 45-65yrs (+1) 1 Risk Factors: No known risk factors (0) 0 Initial Troponin: Normal limit (0) 0 Total 1 Medical Decision Making MDM Patient is a 44-year-old male with a history of appendectomy, cholecystectomy who presents to the emergency department with complaints of left side neck pain that radiates to the chest and left arm onset two days ago. Patient denies any trauma. Patient reports a sensation of swelling to the neck. Denies any fevers. Patient does report a the pain is worse with movement. Patient had similar episodes in November of last year. CBC showed no leukocytosis, no anemia, chemistry showed no electrolyte imbalance, negative troponin x2, negative lipase, GFR of 76, serology negative, ultrasound revealed small lymph nodes to the neck area. Patient in no acute distress, low risk for cardiac etiology. Patient was admitted here in November last year and had a full workup for similar symptoms. Patient was instructed to follow up with ENT. Patient nontoxic appearance will be discharged to follow up with PCP. Differential diagnosis: ACS, dehydration, COVID-19 infection, lymphadenitis Need for hospitalization: Patient does not meet criteria for hospitalization. There are no social concerns with this patient. DX & DISP Disposition: Discharge Departure Impression: Primary Impression: Cervical lymphadenitis Additional Impression: Atypical chest pain Condition: Stable Additional Instructions: Please follow up with your primary doctor in 1-2 days. Symptoms worsen please return to ER. You would have to monitor your lymph nodes. Symptoms do not improve they might need to biopsy FOLLOW-UP WITH PRIMARY CARE PROVIDER IN 1 TO 2 DAYS. TAKE MEDICATIONS DIRECTED HERE IN THE EMERGENCY ROOM. OKAY TO CONTINUE HOME MEDICATIONS UNLESS OTHERWISE DISCUSSED DURING YOUR VISIT IN THE EMERGENCY ROOM TODAY. RETURN TO YOUR NEAREST EMERGENCY ROOM IF SYMPTOMS WORSEN OR IF THERE IS NO IMPROVEMENT. CALL 911 IF YOU NEED IMMEDIATE ASSISTANCE. TAKE TYLENOL OR MOTRIN [id number] NEEDED AND IF NO CONTRAINDICATIONS ARE PRESENT. INCREASE ORAL HYDRATION. A WOUND CULTURE OR URINE CULTURE WAS ORDERED HERE IN THE EMERGENCY ROOM DEPARTMENT PLEASE FOLLOW-UP WITH PRIMARY CARE PROVIDER AND ADVISE THEM TO GET REPEAT PORTS FROM OUR FACILITY. IF YOU HAD ANY NAYELY WRAP/SPLINTS THAT WERE APPLIED HERE, PLEASE DO NOT REMOVE THEM UNTIL YOU SEE YOUR PRIMARY CARE OR SPECIALTY. Referrals: SUNNI SINGH (PCP) Time of Disposition: 00:16 I have reviewed the case, and I agree with, Diagnosis and Plan ERIN RAMIREZ Jun 27, 2024 23:21
[2024-06-27 23:35] LABS: INFLUENZA TYPE A Negative For Type A (NEGATIVE); INFLUENZA TYPE B Negative For Type B (NEGATIVE)
[2024-06-27 23:36] LABS: COVID19 (SARS ANTIGEN RAPID) PRESUMPTIVE NEGATIVE (NEGATIVE)
[2024-06-27 23:38] LABS: RAPID GROUP A STREP negative (NEGATIVE)
[2024-06-28 00:28] VITALS: BP 140/87; PULSE 80; RESP 20; TEMP 98.6; O2SAT 100
--- NOTE | 2024-06-28 06:33 | EKG ---
[facility] Test Date: 2024-06-27 Test Time: 21:38:05 Pat Name: ADIN MANUEL Department: ED Room: Gender: Biological Science Technician Fish: [birth year] : 1980 Requested By: ERIN RAMIREZ Order Number: [id number] Reading MD: Jere Ho Measurements Intervals [place] Rate: 79 P: 23 TX: 157 QRS: 24 QRSD: 82 T: 31 QT: 365 QTc: 420 Interpretive Statements Sinus rhythm Compared to ECG 11/17/2023 18:44:52 No significant changes Electronically Signed On 06-28-2024 11:20:13 CDT by Jere Ho Please click the below link to view image of tracing.
--- NOTE | 2024-06-28 09:27 | HMCIMG ---
PORTABLE CHEST RADIOGRAPH INDICATION: cp COMPARISON: 11/17/2023 FINDINGS: radiation monitor leads overlie the field of view. Heart size is normal. The pulmonary vascularity and sammi appear normal. No abnormal pulmonary parenchymal opacity or consolidation identified. No significant pleural effusion noted. No pneumothorax detected. IMPRESSION: No radiographic evidence for any acute cardiopulmonary process.
--- NOTE | 2024-06-28 09:30 | HMCIMG ---
Ultrasound soft tissue neck INDICATION: Left neck pain COMPARISON: None TECHNIQUE: Multiplanar sonographic images of the left neck were obtained earlier in real-time using grayscale and color Doppler technique, and subsequently made available for review. FINDINGS/IMPRESSION: No evidence for soft tissue mass or cystic lesion. A total of six small subcentimeter lateral left neck lymph nodes identified, largest three appear normal with normal reniform shape and fatty hilum, but smaller three with associated rounded shape and loss of fatty hilum, but no associated vascularity.
== END 2024-06-28 00:29 | disposition home or self-care (01) ==
LOC: EDH 21:11
DX: I88.9 Nonspecific lymphadenitis, unspecified (principal); R07.89 Other chest pain; Z79.1 Long term (current) use of non-steroidal anti-inflammatories (NSAID); Z79.82 Long term (current) use of aspirin; Z79.899 Other long term (current) drug therapy; Z88.1 Allergy status to other antibiotic agents; Z90.49 Acquired absence of other specified parts of digestive tract; Z20.822 Contact with and (suspected) exposure to COVID-19
CPT/HCPCS: 99284; 96374; 71045; 87426; 82550; 83735; 84484 ×2; 80048; 83880; 83690; 85025; 87880; 87804 ×2; 36415; 76536; 93005; J2470

== ENCOUNTER 2024-06-30 02:42 | Emergency (ER) | payer BC ==
[~2024-06-30] VITALS: Ht 167.6 cm; Wt 125.2 kg
--- NOTE | 2024-06-30 03:22 | ERN ---
General Chief Complaint: Neck Pain Stated Complaint: C/O PAIN TO NECK, LEFT SIDE Time Seen by MD: 03:14 History of Present Illness Initial Comments Patient is a 44-year-old male with swelling and neck pain on the left side. It happened to him a year ago and he was admitted to the hospital for five days but that is all he remembers. He went to his primary care doctor two days ago who wanted to have it evaluated by a plant technician/control room operator oncologist to make sure there was nothing more going on than just a simple lymph node enlargement. The patient is absolutely asymptomatic aside from this swollen lymph node. No chest pain no shortness of breath no fevers no chills no change in his GI tract. He is here because it is hurting him more any wants to make sure there was nothing serious going on. Allergies: Coded Allergies: ceftriaxone (Unverified Allergy, Severe, ANAPHYLAXIS, 09/17/18) No Known Allergies (Verified Allergy, Unknown, 09/17/18) metronidazole (Unverified Allergy, Unknown, 09/17/18) Home Meds Active Scripts Baclofen (Baclofen) 10 Mg Tablet, 10 MG PO BID for 7 Days, #1 TAB Prov:KEO SHAW MD 11/21/23 Ketorolac Tromethamine (Ketorolac Tromethamine) 10 Mg Tablet, 10 MG PO BID for 7 Days, #14 TAB Prov:KEO SHAW MD 11/21/23 Famotidine (Famotidine) 20 Mg Tablet, 20 MG PO BID, #60 TAB Prov:ANNE DELVALLE APRN 11/19/23 Atorvastatin Calcium (LIPITOR) 40 Mg Tablet, 40 MG PO HS, #60 TAB Prov:ANNE DELVALLE CASING CREW PUSHER 11/19/23 Aspirin (ASPIRIN 81MG CHEW TAB) 81 Mg Tab.chew, 81 MG PO DAILY, #60 TAB.CHEW Prov:ANNE DELVALLE APRN 11/19/23 Mag Hydrox/Al Hydrox/Simeth (Maalox Maximum Strength Susp) 400 Mg-400 Mg-40 Mg/5 Ml Oral.susp, 20 ML PO QID, #250 ML Prov:BONNIE DUCKWORTH MD 02/12/23 Ondansetron HCl (Ondansetron HCl) 4 Mg Tablet, 4 MG PO TIDP PRN for VOMITING, #20 TAB Prov:BONNIE DUCKWORTH MD 02/12/23 Omeprazole (Omeprazole) 40 Mg Capsule.dr, 40 MG PO DAILY, #30 CAP Prov:BONNIE DUCKWORTH MD 02/12/23 Ibuprofen (Motrin/Advil) 800 Mg Tab, 800 MG PO TID, #30 TAB Prov:BONNIE DUCKWORTH MD 02/12/23 Reported Medications Multivitamin/Iron/Folic Acid (Centrum Adults Tablet) 1 Each Tablet, 1 EACH PO DAILY, TAB 09/17/18 Past Medical History Past Medical History: No Pertinent History Medical History Other: DIERTICULITIS history of pancreatitis Past Surgical History: None Surgical History Other: Cholecystectomy Family History Family History: HTN Social History Social History: ETOH, Negative Constitutional: (-) chills, (-) diaphoresis, (-) fever, (-) malaise, (-) weakness, (-) other documentation EENTM: (-) eye pain, (-) blurred vision, (-) tearing, (-) double vision, (-) ear pain, (-) ear discharge, (-) nose pain, (-) nose congestion, (-) throat pain, (-) Throat swelling, (-) mouth pain, (-) tooth pain, (-) mouth swelling, (-) other documentation Respiratory: (-) cough, (-) orthopnea, (-) short of breath, (-) stridor, (-) wheezing, (-) other documentation Cardiovascular: (-) chest pain, (-) edema, (-) palpitations, (-) syncope, (-) dyspnea on exertion, (-) other documentation Gastrointestinal/Abdominal: (-) nausea, (-) vomiting, (-) diarrhea, (-) abdominal pain, (-) abdominal distention, (-) constipation, (-) rectal bleeding, (-) dark stool/melena, (-) other documentation Skin: (-) laceration, (-) contusion, (-) abrasion, (-) abscess, (-) rash, (-) change in color, (-) change in hair, (-) change in nails, (-) diaphoresis, (-) dryness, (-) other documentation Neuro: (-) altered mental status, (-) headache, (-) syncope, (-) paralysis, (-) numbness, (-) seizure, (-) pre-existing deficit, (-) tremors, (-) weakness, (-) dizziness, (-) slurred speech, (-) vertigo, (-) other documentation Physical Exam General Appearance: (+) no apparent distress Orientation: (+) alert Head/Face Trauma: No Eye: bilateral eye normal inspection, bilateral eye PERRL, bilateral eye EOMI Ear, Nose, Throat: (+) hearing grossly normal, (+) normal ENT inspection Ear, Nose, Throat Comment In between the two heads of this current sternocleidomastoid muscle there is a small area of tenderness with a mass underneath it. Patient's thyroid gland is undetectable. Respiratory: (+) chest non-tender, (+) lungs clear Heart: (+) regular Vascular: (+) no edema Gastrointestinal: (+) soft, (+) non-tender, (+) no organomegaly Results Laboratory and Microbiology Lab and Micro Result Laboratory Tests Test 06/30/24 04:50 Sodium Level 140 mmol/L (136-145) Potassium Level 3.5 mmol/L (3.5-5.1) Chloride Level 103 mmol/L (101-111) Carbon Dioxide Level 30 mmol/L (21-32) Blood Urea Nitrogen 21 mg/dL (7-18) H Creatinine 1.3 mg/dL (0.5-1.3) Glomerular Filtration Rate Calc 69 mL/min (>90) Random Glucose 116 mg/dL (70-105) H Total Calcium 8.6 mg/dL (8.5-10.1) MDM The patient is here because of concerns of the mass hurting more. I will get contrast CT of his soft tissues in his neck and give him a dose of Toradol. Orders written at 4:19 a.m. History panel showed a slight elevated creatinine. His renal function was still adequate for a CT scan was IV contrast so we obtained on of his neck. It shows possibly on the area of his pain some lymph nodes but no defined mass no necrosis no pressure on any vascular systems or airway. Per my view the patient's thyroid is normal and on exam he does not have a hyperthyroid. I recommended he follow-up with his plant technician/control room operator per his primary care doctor's recommendation. ED Course Orders Procedure Category Date Status Time Ketorolac PHA 06/30/24 Complete Tromethamine 15mg/Ml 04:30 Ct Neck Soft Tiss CT 06/30/24 Taken W/Contrast 04:20 Basic Metabolic Panel LAB 06/30/24 Complete 04:20 Iohexol (Omnipaque) PHA 06/30/24 Complete 05:46 Current Medications Medications (Trade) Dose Ordered Sig/Edward Route PRN Reason Start Time Stop Time Status Last Admin Dose Admin Clindamycin HCl/ Dextrose (Cleocin Ivpb 900mg) 900 mg ONCE ONCE IV 06/30/24 03:30 06/30/24 03:52 DC Doxycycline Hyclate 250 ml @ 166.667 mls/hr ONCE ONCE IV 06/30/24 04:00 06/30/24 05:29 Cancel Iohexol (Omnipaque) 75 ml STK-MED ONCE IV 06/30/24 05:46 06/30/24 05:46 DC Ketorolac Tromethamine (toRADol) 15 mg ONCE ONCE IV 06/30/24 04:30 06/30/24 04:31 DC 06/30/24 04:55 Vital Signs Date Time Temp Pulse Resp B/P (MAP) Pulse Ox O2 Delivery O2 Flow Rate FiO2 06/30/24 02:44 97.2 71 20 158/99 98 Room Air DX & DISP Disposition: Discharge Departure Impression: Primary Impression: Cervical lymphadenitis Condition: Stable Additional Instructions: Please return if the area becomes red hot swollen with signs of infection or if you have difficulty breathing. Referrals: SUNNI SINGH FN (PCP) NEFTALY CARRION MD Jun 30, 2024 03:22
[2024-06-30] MEDS ORDERED: CLINDAMYCIN IVPB 900MG/50ML IV ONE (03:30)
[2024-06-30] MEDS: DOXYCYCLINE 100MG+NS 250ML 250 ML IV ONE (03:53)
[2024-06-30] MEDS: ketOROlac 15MG/ML VIAL (15MG/ML) IV ONE (04:55)
[2024-06-30 05:11] LABS: CREATININE 1.3 mg/dL (0.5-1.3); POTASSIUM 3.5 mmol/L (3.5-5.1)
[2024-06-30] MEDS ORDERED: IOHEXOL-350 75 ML VIAL IV ONE (05:46)
[2024-06-30 06:12] VITALS: BP 123/78; PULSE 72; RESP 18; TEMP 98.4; O2SAT 96
--- NOTE | 2024-06-30 08:42 | HMCIMG ---
CT NECK SOFT TISS W/CONTRAST HISTORY: Lymph node pain COMPARISON: November 18, 2023 TECHNIQUE: Multiple sequential axial images of the soft tissue neck were obtained. Patient was given 75 cc of Omnipaque through intravenous route. FINDINGS: Visualized portion of brain parenchyma within the posterior fossa is within normal limits. Parapharyngeal fat planes are preserved bilaterally. Parotid glands and submandibular glands are grossly within normal limits. Prominent enlarged suprahyoid lymph nodes are again seen with the largest in the left measuring 13 mm. Internal jugular vein is patent. No CT evidence of abscess is seen. Thyroid gland is prominent. The airway is patent. Visualized portion of the lung apices are unremarkable. IMPRESSION: 1. Prominent cervical lymph nodes unchanged. CT was performed with one or more following dose reduction techniques: automated exposure control, adjustment of the mA and kv according to patient's size, or use of a iterative reconstruction technique.
== END 2024-06-30 06:33 | disposition home or self-care (01) ==
LOC: EDH 02:42
DX: I88.9 Nonspecific lymphadenitis, unspecified (principal); Z79.1 Long term (current) use of non-steroidal anti-inflammatories (NSAID); Z79.82 Long term (current) use of aspirin; Z79.899 Other long term (current) drug therapy; Z88.1 Allergy status to other antibiotic agents; Z90.49 Acquired absence of other specified parts of digestive tract
CPT/HCPCS: 99284; 96374; 70491; 80048; 36415; J1885; Q9967; J3490

== ENCOUNTER 2024-07-03 12:43 | Emergency (ER) | payer BC ==
[~2024-07-03] VITALS: Ht 167.6 cm; Wt 124.7 kg
[2024-07-03 12:59] VITALS: BP 132/85; PULSE 78; RESP 16; TEMP 98.3; O2SAT 98
[2024-07-03] MEDS: morPHINE 4 MG SYG IM ONE (13:44)
[2024-07-03] MEDS ORDERED: CLOT15CR5 TP (13:46)
--- NOTE | 2024-07-03 13:47 | ERN ---
General Chief Complaint: Neck Pain Stated Complaint: LEFT SIDE OF NECK SWELLING/ PAIN Time Seen by MD: 13:04 Time Seen by Midlevel: 13:04 Source: patient History of Present Illness Initial Comments Patient is a 44-year-old male presenting to the emergency department with left- sided neck pain. Patient has been seen in our emergency department 2 times in the last week for the same complaint. He has had an ultrasound and a CT scan of the neck performed which shows cervical lymphadenopathy but no evidence of tumors or any other acute etiology. Today he states his pain became unbearable so he decided to report to the ER for further evaluation. He was currently scheduled for a hematology/oncology appointment. He was not seeking further workup but is only here for pain control. Additionally, the patient reports having a rash to the center of his chest that has been ongoing for approximately 4-5 months. He has been preoccupied with his neck pain/swelling that he has forgot to mention it to several doctors. Allergies: Coded Allergies: ceftriaxone (Unverified Allergy, Severe, ANAPHYLAXIS, 09/17/18) No Known Allergies (Verified Allergy, Unknown, 09/17/18) metronidazole (Unverified Allergy, Unknown, 09/17/18) Home Meds Active Scripts Baclofen (Baclofen) 10 Mg Tablet, 10 MG PO BID for 7 Days, #1 TAB Prov:KEO SHAW MD 11/21/23 Ketorolac Tromethamine (Ketorolac Tromethamine) 10 Mg Tablet, 10 MG PO BID for 7 Days, #14 TAB Prov:KEO SHAW MD 11/21/23 Famotidine (Famotidine) 20 Mg Tablet, 20 MG PO BID, #60 TAB Prov:ANNE DELVALLE DECAL TRANSFERRER 11/19/23 Atorvastatin Calcium (LIPITOR) 40 Mg Tablet, 40 MG PO HS, #60 TAB Prov:ANNE DELVALLE DECAL TRANSFERRER 11/19/23 Aspirin (ASPIRIN 81MG CHEW TAB) 81 Mg Tab.chew, 81 MG PO DAILY, #60 TAB.CHEW Prov:ANNE DELVALLE APRN 11/19/23 Mag Hydrox/Al Hydrox/Simeth (Maalox Maximum Strength Susp) 400 Mg-400 Mg-40 Mg/5 Ml Oral.susp, 20 ML PO QID, #250 ML Prov:BONNIE DUCKWORTH MD 02/12/23 Ondansetron HCl (Ondansetron HCl) 4 Mg Tablet, 4 MG PO TIDP PRN for VOMITING, #20 TAB Prov:BONNIE DUCKWORTH MD 02/12/23 Omeprazole (Omeprazole) 40 Mg Capsule.dr, 40 MG PO DAILY, #30 CAP Prov:BONNIE DUCKWORTH MD 02/12/23 Ibuprofen (Motrin/Advil) 800 Mg Tab, 800 MG PO TID, #30 TAB Prov:BONNIE DUCKWORTH MD 02/12/23 Reported Medications Multivitamin/Iron/Folic Acid (Centrum Adults Tablet) 1 Each Tablet, 1 EACH PO DAILY, TAB 09/17/18 Past Medical History Past Medical History: No Pertinent History Medical History Other: DIERTICULITIS history of pancreatitis Past Surgical History: Appendectomy, Cholecystectomy, Other Surgical History Other: Cholecystectomy Family History Family History: HTN Social History Social History: ETOH, Negative ROS Dictation CONSTITUTIONAL: Negative except for HPI HEAD/FACE: Negative except for HPI EENT: Negative except for HPI RESPIRATORY: Negative except for HPI GASTROINTESTINAL/ABDOMINAL: Negative except for HPI GENITOURINARY: Negative except for HPI MUSCULOSKELETAL: Negative except for HPI INTEGUMENTARY: Negative except for HPI NEUROLOGICAL/PSYCH: Negative except for HPI HEMATOLOGIC/LYMPHATIC: Negative except for HPI All Systems Negative, Except as noted above. 13 point review of systems assessed and all negative except for above. Physical Exam Physical Exam Dictation Vital Signs reviewed General Appearance: Alert, oriented x 3, no acute distress, well developed, nourished. Head and Face: non-traumatic. Eyes: PERRL, pink conjunctivas, eyelid no trauma, anterior chamber with arcus senilis. Ears: Pinnas intact and no signs of trauma or erythema ear canals clear and no discharge TM no erythema Nose: No discharge, no bleeding. Oropharynx: Mouth normal, tongue pink, pharynx clear,no erythema, tonsils no exudates, no abscesses noted, mucous membrane moist Neck: Supple, non-tender, no thyromegaly, no masses, no JVD, no bruits Breast:Deferred Chest:No tenderness, no crepitus, no paradoxical movement, no retractions Lungs:Clear, well-ventilated, symmetric, no rales, no wheezing, no rhonchi, no stridor, good breath sounds bilaterally Heart: Regular rate, regular rhythm, no murmur, no gallops Vascular: no peripheral edema, Abdomen: Soft, positive bowel sounds, nondistended, no guarding, nontender, no rebound, no masses no hepatomegaly, no splenomegaly, no Vargas's sign, no hernias. Rectal: Deferred Genital: Deferred Neurological: Normal speech, motor function intact, sensory function intact Musculoskeletal: Neck nontender, full range of motion, back nontender, full range of motion, Extremities: nontender, full range of motion Skin: Color pink, dry, no turgor, there is a rash at the center of his chest consistent with a fungal infection, no lacerations, no abrasions, no contusions. Lymphatic: Deferred MDM MDM: Patient is a 44-year-old male presenting to the emergency department with left-sided neck pain. Patient has been seen in our emergency department 2 times in the last week for the same complaint. He has had an ultrasound and a CT scan of the neck performed which shows cervical lymphadenopathy but no evidence of tumors or any other acute etiology. Today he states his pain became unbearable so he decided to report to the ER for further evaluation. He was currently scheduled for a hematology/oncology appointment. He was not seeking further workup but is only here for pain control. Additionally, the patient reports having a rash to the center of his chest that has been ongoing for approximately 4-5 months. He has been preoccupied with his neck pain/swelling that he has forgot to mention it to several doctors. On physical examination he was some mild left cervical lymphadenopathy to the posterior cervical chain. No erythema, induration, or drainable abscess noted. Vital signs are stable. Patient was afebrile. No trismus noted. No dental cavities or dental abscesses noted. ENT examination is reassuring. Patient was seeking pain control he was given 4 mg of morphine IM. He also reported a rash to the center of his chest that has been ongoing for approximately 4-5 months. It has been clearing up with [id number] medication but he stopped taking it. His rash is consistent with a fungal infection we will discharged home on clotrimazole cream. Differential diagnosis: Pain control, wellness examination, cervical lymphadenopathy There are no social concerns with this patient. Prescription drug management Prescriptions will include: Clotrimazole Medical management and examination interpretation discussions were had by me with other qualified healthcare professionals as indicated for the patient's care. ED Course Orders Procedure Category Date Status Time Morphine 4mg Syg PHA 07/03/24 Verified (Morphine 4mg Syg) 14:00 Vital Signs Date Time Temp Pulse Resp B/P (MAP) Pulse Ox O2 Delivery O2 Flow Rate FiO2 07/03/24 12:59 98.2 78 16 132/85 98 Room Air* 0 21 07/03/24 12:46 98.8 75 16 135/85 100 0 DX & DISP Disposition: Discharge Departure Impression: Primary Impression: Left cervical lymphadenopathy Additional Impression: Tinea corporis Condition: Stable Scripts Clotrimazole/Betamethasone Dip (Clotrimazole-Betamethasone Crm) 1 %-0.05 % Cream..g. 1 APPL TP BID for 7 Days, #15 GM 0 Refills apply to affected area(s) Prov: DENISE DEVI 07/03/24 Referrals: ANIL DALTON MD (PCP) Time of Disposition: 13:46 I have reviewed the case, and I agree with, Diagnosis and Plan I performed the substantive portion of the visit. I have reviewed and personally made and approve the management plan that is documented in the note by myself or the PRAVIN. I acknowledge for responsibility for the patient's management plan. DENISE DEVI Jul 03, 2024 13:47
== END 2024-07-03 13:59 | disposition home or self-care (01) ==
LOC: EDH 12:43
DX: B35.4 Tinea corporis (principal); R59.0 Localized enlarged lymph nodes; Z79.899 Other long term (current) drug therapy; Z90.49 Acquired absence of other specified parts of digestive tract; Z98.890 Other specified postprocedural states
CPT/HCPCS: 99284; 96372; J2270

== ENCOUNTER 2024-08-08 11:14 | Emergency (ER) | payer BC ==
[~2024-08-08] VITALS: Ht 167.6 cm; Wt 127.0 kg
[~2024-08-08 11:14] MED LIST changes: +CLOT15CR5 TP
[2024-08-08] MEDS: ketOROlac 15MG/ML VIAL (15MG/ML) IM ONE (12:00)
--- NOTE | 2024-08-08 12:00 | NUR ---
UPON ADMINISTERING IM TORADOL FOR PAIN, PT ASKING WHY CANT I GET MORPHINE. ADVISED PT RESULTS ARE STILL PENDING AND I WILL REASSESS THE PAIN
[2024-08-08] MEDS: teTANUS/diphthERIA TOXOID [ADULT] 0.5 ML VIAL IM ONE (12:01)
--- NOTE | 2024-08-08 12:03 | HMCIMG ---
Exam Type: FOOT LIMITED 2VWS RT Clinical Information: stepped on nail Comparison: None Findings: The examination is unremarkable except for calcaneal spurs. No fractures or dislocations are seen. No radiopaque foreign bodies are noted. Soft tissues are preserved. IMPRESSION: Calcaneal spurs.
--- NOTE | 2024-08-08 12:14 | ERN ---
ED Note History of Present Illness Stated Complaint: RIGHT FOOT PAIN Chief Complaint: FOOT INJURY/PAIN Time Seen by MD: : Time Seen by Midlevel: 11:22 Dictation: 44-year-old male coming in with complaints of stepping on a nail two weeks ago. Patient states yesterday he was seen at [facility] with a did not x-ray but states it and gave him the tetanus vaccine. Patient states he has had the vaccine over five years. Also requesting pain medication, states he needs stronger pain medication and he is going to see his pain specialist on the of this month. Allergies: Coded Allergies: ceftriaxone (Unverified Allergy, Severe, ANAPHYLAXIS, 09/17/18) No Known Allergies (Verified Allergy, Unknown, 09/17/18) metronidazole (Unverified Allergy, Unknown, 09/17/18) Home Meds Active Scripts Clotrimazole/Betamethasone Dip (Clotrimazole-Betamethasone Crm) 1 %-0.05 % Cream..g., 1 APPL TP BID for 7 Days, #15 GM 0 Refills apply to affected area(s) Prov:DENISE DEVI 07/03/24 Baclofen (Baclofen) 10 Mg Tablet, 10 MG PO BID for 7 Days, #1 TAB Prov:KEO SHAW MD 11/21/23 Ketorolac Tromethamine (Ketorolac Tromethamine) 10 Mg Tablet, 10 MG PO BID for 7 Days, #14 TAB Prov:KEO SHAW MD 11/21/23 Famotidine (Famotidine) 20 Mg Tablet, 20 MG PO BID, #60 TAB Prov:ANNE DELVALLE TECHNOLOGIST DEVELOPMENT 11/19/23 Atorvastatin Calcium (LIPITOR) 40 Mg Tablet, 40 MG PO HS, #60 TAB Prov:ANNE DELVALLE TECHNOLOGIST DEVELOPMENT 11/19/23 Aspirin (ASPIRIN 81MG CHEW TAB) 81 Mg Tab.chew, 81 MG PO DAILY, #60 TAB.CHEW Prov:ANNE DELVALLE TECHNOLOGIST DEVELOPMENT 11/19/23 Mag Hydrox/Al Hydrox/Simeth (Maalox Maximum Strength Susp) 400 Mg-400 Mg-40 Mg/5 Ml Oral.susp, 20 ML PO QID, #250 ML Prov:BONNIE DUCKWORTH MD 02/12/23 Ondansetron HCl (Ondansetron HCl) 4 Mg Tablet, 4 MG PO TIDP PRN for VOMITING, #20 TAB Prov:BONNIE DUKCWORTH MD 02/12/23 Omeprazole (Omeprazole) 40 Mg Capsule.dr, 40 MG PO DAILY, #30 CAP Prov:BONNIE DUCKWORTH MD 02/12/23 Ibuprofen (Motrin/Advil) 800 Mg Tab, 800 MG PO TID, #30 TAB Prov:BONNIE DUCKWORTH MD 02/12/23 Reported Medications Multivitamin/Iron/Folic Acid (Centrum Adults Tablet) 1 Each Tablet, 1 EACH PO DAILY, TAB 09/17/18 Past Medical History Past Medical History: Diverticulitis, Pancreatitis Additional Past Medical Hx: CHRONIC PAIN TO JOINTS Surgical History: Appendectomy, Cholecystectomy, Other Surgical History Other: Cholecystectomy Family History: HTN Social History: ETOH, Negative Review of System Dictation Constitutional: Negative for fever,chills, and weight loss Eyes: Negative for injury, pain,redness, and discharge ENT: Negative for injury,pain or swelling Cardiovascular: Negative for chest pain, palpitations, and edema Respiratory: Negative for shortness of breath, cough, and wheezing, Abdomen/GI: Negative for abdominal pain, nausea, vomiting, diarrhea, and constipation Back: Negative for injury and pain : Negative for injury, bleeding and discharge MS/Extremity: Negative for injury and deformity, complaining of left foot pain Skin: Negative for rash, and discoloration Neuro: Negative for headache, weakness, numbness, tingling, and seizure Psych: Negative for suicide ideation, homicidal ideation, and hallucinations Review of Systems: was completed Initial Vital Sign VS Vital Signs Date Time Temp Pulse Resp B/P (MAP) Pulse Ox O2 Delivery O2 Flow Rate FiO2 08/08/24 11:16 97.9 78 16 143/96 97 Room Air 0 08/08/24 12:22 21 Physical Exam Dictation General: awake, alert, NAD Head/Face: Normocephalic, atraumatic Eyes: PERRL, EOMI, vision at baseline ENT: oral cavity clear, TMs clear, no signs of infection Neck: Trachea midline, supple, no nuchal rigidity Cardiovascular: RRR, normal S1/S2, No MRGs, no JVD Respiratory: CTAB, no respiratory distress, No rales or wheezes Abdomen: Soft, non-tender, non-distended, normal bowel sounds, no guarding or rebound. Skin: Warm, dry, normal turgor, no rash MS/Extremity: Pulses equal, no cyanosis, neurovascular intact, FROM, there is no redness, streaking, open wound, no signs of infectious etiology s Neuro: COAx4, GCS 15, strength 5/5, CN 2-12 intact, normal cerebellar exam, normal gait, Psych: Normal behavior, mood, and affect normal Results (Laboratory/Radiology) Labs Reviewed?: Yes X-RAY Comment: [facility] [id number] [place] [address] IMAGING REPORT Signed PATIENT: ADIN MANUEL MR#: [id number] : 1980 SEX: M AGE: 44 LOCATION: [facility] ORDER 1130 STATUS: REG ER REPORT#: [id number] SERVICE [id number] REASON: stepped on nail ORDERING PHYSICIAN: SHARA DURBIN NP PROCEDURE: FT 2VW RT - FOOT LIMITED 2VWS RT Exam Type: FOOT LIMITED 2VWS RT Clinical Information: stepped on nail Comparison: None Findings: The examination is unremarkable except for calcaneal spurs. No fractures or dislocations are seen. No radiopaque foreign bodies are noted. Soft tissues are preserved. IMPRESSION: Calcaneal spurs. DICTATED BY: JSOI REEVES MD DATE: 08/08/24 1200 ELECTRONICALLY SIGNED BY: JOSI REEVES MD DATE: 08/08/24 1203 ED Course ED Course Orders Procedure Category Date Status Time Foot Limited 2vws Rt RAD 08/08/24 Resulted 11:29 Ketorolac PHA 08/08/24 Complete Tromethamine 15mg/Ml 11:30 Tetanus,Diphtheria PHA 08/08/24 Complete Tox [Adult] (Diphther 11:30 Morphine 2mg Syg PHA 08/08/24 Complete (Morphine 2mg Syg) 12:07 Current Medications Medications (Trade) Dose Ordered Sig/Edward Route PRN Reason Start Time Stop Time Status Last Admin Dose Admin Ketorolac Tromethamine (toRADol) 15 mg ONCE ONCE IM 08/08/24 11:30 08/08/24 11:34 DC 08/08/24 12:00 Morphine Sulfate (morPHINE 2MG SYG) 2 mg ONCE STAT IM 08/08/24 12:07 08/08/24 12:14 DC 08/08/24 12:29 Tetanus/ Diphtheria Toxoids Adsorbed (DiphthERIA-teTANUS TOXOID [ADULT]/ DECAVAC) 0.5 ml ONCE ONCE IM 08/08/24 11:30 08/08/24 11:33 DC 08/08/24 12:01 Vital Signs Date Time Temp Pulse Resp B/P (MAP) Pulse Ox O2 Delivery O2 Flow Rate FiO2 08/08/24 12:22 97.9 76 16 131/87 97 Room Air* 0 21 08/08/24 11:16 97.9 78 16 143/96 97 Room Air 0 Medical Decision Making MDM MDM: 44-year-old male coming in with complaints of stepping on a nail two weeks ago. Patient states yesterday he was seen at [facility] with a did not x- ray but states it and gave him the tetanus vaccine. Patient states he has had the vaccine over five years. Also requesting pain medication, states he needs stronger pain medication and he is going to see his pain specialist on the of this month. X-ray shows calcaneal spur. Patient will be discharged to follow up with PCP in his pain specialist. Patient verbalized understanding, answered all questions. Differential diagnosis: The pain, foreign body ,metatarsal injury Rationale: Tests considered and ordered secondary to shared decision making include: Previous outside records reviewed: Old ER visits. Risk of complication and/or morbidity or mortality of patient management: None Medications-Per medication reconciliation Need for hospitalization: Patient does not meet criteria for hospitalization. Need for emergency major/minor surgery: No There are no social concerns with this patient. Prescription drug management Prescriptions will include symptomatic care Patient's prior external medical records from other ER visits were reviewed by me as indicated. Prior testing and results from previous visits were reviewed. Prior tests were taken into account with medical decision making and resource utilization, independent historian/historians were used to obtain complete medical history. I independently interpreted the test that were performed, results were reviewed by me and considered findings on radiology if ordered. Medical management and examination interpretation discussions were had by me with other qualified healthcare professionals as indicated for the patient's care. DX & DISP Disposition: Discharge Departure Impression: Primary Impression: Calcaneal spur of left foot Additional Impression: Foot pain, left Condition: Stable Additional Instructions: Continue taking medication for pain. Keep your appointment with a pain specialist. Return to the hospital if you have any emergencies. Referrals: ANIL DALTON MD (PCP) Time of Disposition: 12:12 I have reviewed the case, and I agree with, Diagnosis and Plan I performed the substantive portion of the visit. I have reviewed and personally made and approve the management plan that is documented in the notes by myself or the PRAVIN. I acknowledge full responsibility for the patient's management plan. SHARA DURBIN NP August 08, 2024 12:14 SUGEY BOONE MD August 08, 2024 18:15
[2024-08-08 12:22] VITALS: BP 131/87; PULSE 76; RESP 16; TEMP 97.9; O2SAT 97
[2024-08-08] MEDS: morPHINE 2 MG SYG IM STA (12:29)
--- NOTE | 2024-08-08 12:30 | NUR ---
PT STATES NO PAIN RELIEF, UPON ADMINISTERING MORPHINE 2MG IM SATES HOW COME THIS WASNT GIVEN INSTEAD OF TORADOL? CAN I GET IT IV? INFORMED PT MEDICATION ORDER IS FOR IM. VERBALIZED UNDERSTANDING
== END 2024-08-08 12:45 | disposition home or self-care (01) ==
LOC: EDH 11:14
DX: M77.32 Calcaneal spur, left foot (principal); M79.672 Pain in left foot; Z79.1 Long term (current) use of non-steroidal anti-inflammatories (NSAID); Z79.82 Long term (current) use of aspirin; Z79.899 Other long term (current) drug therapy; Z88.1 Allergy status to other antibiotic agents; Z90.49 Acquired absence of other specified parts of digestive tract
CPT/HCPCS: 99284; 90714; 73620; 96372 ×2; 90471; J1885; J2270

== ENCOUNTER 2024-12-08 13:12 | Emergency (ER) | payer BC ==
[~2024-12-08] VITALS: Ht 167.6 cm; Wt 122.5 kg
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
[2024-12-08 13:54] VITALS: BP 146/95; PULSE 87; RESP 16; TEMP 98.3; O2SAT 97
== END 2024-12-08 14:05 | disposition home or self-care (01) ==
LOC: EDH 13:12
DX: M54.41 Lumbago with sciatica, right side (principal); M54.42 Lumbago with sciatica, left side; E66.9 Obesity, unspecified; Z79.1 Long term (current) use of non-steroidal anti-inflammatories (NSAID); Z79.82 Long term (current) use of aspirin; Z79.899 Other long term (current) drug therapy; Z87.19 Personal history of other diseases of the digestive system; Z88.1 Allergy status to other antibiotic agents; Z90.49 Acquired absence of other specified parts of digestive tract; V89.2XXA Person injured in unspecified motor-vehicle accident, traffic, initial encounter; Y93.89 Activity, other specified; Y92.488 Other paved roadways as the place of occurrence of the external cause; Y99.8 Other external cause status
CPT/HCPCS: 99282